=== PATIENT | male | born 1950 | race Caucasian/White ===

== ENCOUNTER → 2019-07-20 | Outpatient (CLI) | payer MEDICARE, SELFPAY | END | disposition home or self-care (01) | PROVIDERS: Visit Provider Podiatrist | DX: L03.115 Cellulitis of right lower limb (principal) | CPT/HCPCS: 87070; 87075; 87205 ==

== ENCOUNTER → 2020-11-23 13:03 | Outpatient (CLI) | payer MEDICARE, SELFPAY ==
--- NOTE | 2020-11-23 13:12 | CT_ITS ---
STUDY: LOW DOSE CT LUNG CANCER SCREENING REASON FOR EXAM: Male, 70 years old. COPD. The patient smoked 1.5 packs of cigarettes a day for 40 years. RADIATION DOSAGE (If Supplied By Facility): CTDIvol = ( 2.01 ) mGy, DLP = ( 77.01 ) mGycm TECHNIQUE: No contrast was administered. Low dose technique was utilized (average mAS-38 and kVp 120). 1.25 mm axial source images with a slice interval of 1.25-mm were reconstructed in lung windows. 2.5 mm axial source images with a slice interval of 2.5-mm were reconstructed in lung windows. 5.0 mm axial source images with a slice interval of 5.0-mm were reconstructed in soft tissue windows. Nodule measured using lung windows on PACS and/or independent workstation with automated measurement of minimum and maximum diameter. Nodule measurement reported as average diameter rounded to the nearest whole number. Growth is defined as an increase ins size of greater than 1.5 mm. COMPARISON: None. NODULES: There is a 1.8 cm x 0.9 cm ovoid nodular density in the lateral posterior aspect of the left upper lobe. This most likely presents a focal area of scarring although a neoplastic process cannot be excluded. There is also evidence of linear scarring in the anterior aspect of the left lung apex. Emphysema: Hyperinflation. Diffuse emphysematous changes with bullous formation in both upper and lower lobes more prominent in the upper lobes. Linear fibrotic strand is seen in the right lung apex. Aorta: Atherosclerotic calcific plaques of the aortic arch. Coronary arteries: Coronary artery calcification. Mediastinal nodes: Small benign appearing mediastinal lymph nodes. Other chest and abdominal findings: CT/Low Dose CT Lung Screening IMPRESSION: Lung-RADS category 4A - Screening at 3 months with LDCT or evaluation with PET/CT may be used. IMPORTANT NOTES FOR USE: ACR Lung-RADS Version 1.1 Assessment Categories Release Date: 2018 Category: Coded 0-4 bases on nodule(s) with highest degree of suspicion. Negative screen is defined as categories 1 and 2; a positive screen is defined as categories 3 and 4. Category 3 and 4A nodules that are unchanged on interval CT should be coded as category 2, and individuals returned to screening in 12 months. Category 4X: Category 3 or 4 nodules with additional imaging findings that increase the suspicion of lung cancer, such as spiculation, GGN that doubles in size in 1 year, enlarged lymph notes, etc. Category Modifiers: S (significant finding unrelated to lung cancer) Electronically Signed: Yuri Castaneda MD at 15:15 EDT , Service support ,
== END ==
PROVIDERS: Referring Provider Nurse Practitioner Adult Health; Visit Provider Nurse Practitioner Adult Health
DX: J44.9 Chronic obstructive pulmonary disease, unspecified (principal); Z87.891 Personal history of nicotine dependence; Z12.2 Encounter for screening for malignant neoplasm of respiratory organs
CPT/HCPCS: 71271

== ENCOUNTER → 2020-12-26 14:00 | Outpatient (CLI) | payer MEDICARE, SELFPAY ==
--- NOTE | 2020-12-26 15:00 | PET_ITS ---
EXAMINATION: FDG PET-CT INDICATIONS: A 70-year-old male with history of pulmonary nodularity. COMPARISON EXAMINATION: CT of the chest report dated 11/23/20 INDEX LESION SIZE SUV INTERPRETATION Left upper lung-left upper lobe, nodular 22.8-mm (frame 182) 1.9 Quantitative criteria for viable neoplasm are not fulfilled, sequential radiologic investigation recommended NON-INDEX LESION SIZE SUV INTERPRETATION Mediastinal structures, bilateral thoracic perihilum 2.6 (max) Quantitative criteria for viable neoplasm are not fulfilled Bilateral lung hernandez 0.8 (max) Quantitative criteria for viable neoplasm are not fulfilled, TECHNIQUE: Following the intravenous administration of 14.6 mCi of F-18 deoxyglucose via the right antecubital fossa, multiplanar image acquisitions of the neck, chest, abdomen and pelvis to level of mid thigh, obtained at one hour post radiopharmaceutical administration contemporaneously interpreted with the current CT of the neck, chest, abdomen and pelvis, to level of mid thigh, dated 12/26/[address] of the chest report dated 11/23/20 reveals: BLOOD GLUCOSE LEVEL:?? 104 mg/dl?HEIGHT:?68 inches?WEIGHT: 130 lbs. FINDINGS: 1. There is a focal increase in labeled GLUCOSE uptake defined in the left upper lateral lung-left upper lobe generating a calculated maximal standard uptake value of 1.9. The maximal axial diameter of the corresponding pleural-based density on review of CT of the chest dated 12/26/20 is 22.8-mm (AP). 2. Facilitated radiopharmaceutical concentration is observed in the carinal level and subcarinal mediastinum, aorticopulmonary window and bilateral thoracic perihilum. The calculated maximal standard uptake value is 2.6. Quantitative criteria for centrally located thoracic/mediastinal viable neoplasm are not fulfilled with single point technique. 3. Normal physiologic distribution of the radiopharmaceutical is apparent in the hepatic (2.9) and splenic parenchyma, both renal units, bladder and visualized intestinal tract. The visualized portion of the cerebral cortical-subcortical structures demonstrate symmetric and preserved glucose metabolism. Diffuse radiopharmaceutical concentration is noted in all four quadrants of the abdomen and pelvis. Subtle linear increased tracer uptake is observed in the bilateral upper lung hernandez rendering a calculated maximal standard uptake value of 0.8. Quantitative criteria for viable neoplasm are not fulfilled. Pertinent CT findings are as follows: CHEST: There is atherosclerotic calcification defined in the thoracic aorta without evidence of dilatation-aneurysm formation. Coronary arterial calcification is observed. Emphysematous changes are defined in the bilateral upper-mid lung zones. Right-left axillary soft tissue with fatty hilus is ametabolic. ABDOMEN AND PELVIS: There is atherosclerotic calcification defined in the abdominal aorta without evidence of dilatation-aneurysm formation. Pelvic arterial calcification is observed. Colonic diverticulosis is encountered without evidence of diverticulitis. Bilateral inguinal soft tissue densities with fatty hilus are ametabolic. Dystrophic calcification is manifest within the prostate gland without evidence of increased tracer uptake. SKELETAL: Degenerative changes are noted in the cervical, thoracic and lumbar spine without evidence of increased radiopharmaceutical concentration. PET/PET/CT Tumor Base -Thigh Init IMPRESSION: 1. NEGATIVE EXAMINATION. There is no definitive quantitative scintigraphic evidence of recurrent/viable neoplasm. 2. Increased tracer uptake visualized in the left upper lateral lung-left upper lobe does not fulfill quantitative criteria for malignant transformation. (Cuello et al, Annals of Internal Medicine, 138:724, 2003). 3. Metabolic and/or anatomic stability may be ensured in the left upper lateral lung-left upper lobe hemithorax pulmonary parenchymal abnormality with repeat FDG PET study and/or CT of the thorax in three months. (Xiu, Journal of Nuclear Medicine 45:88, P2004 [facility], Seminars in Thoracic and Cardiovascular Surgery 14:292, 2002). 4. Enhanced radiotracer activity observed in the mediastinal structures, bilateral thoracic perihilum do not fulfill quantitative criteria for viable metastatic disease. (Kriss et al, Journal of Clinical Oncology 16:2142, 1998). 5. Accentuated uptake visualized in the bilateral upper lung hernandez, linear in presentation, does not fulfill quantitative criteria for malignant transformation. Electronic Signature Garret Leigh D.O. Accurate Quantification of SUVs for this report are calculated using the exclusive [employer]. ([place]. Patent No. [id number]). Standardization and correction of the FDG SUV metric via [employer] technology allow for vendor non-specific objective quantitative examination comparison and optimization of the sensitivity and specificity of the FDG PET-CT examination. Electronically Signed: Garret Leigh DO at 23:30 EDT Tel , Service support ,
== END ==
PROVIDERS: Referring Provider Nurse Practitioner Adult Health; Visit Provider Nurse Practitioner Adult Health
DX: R91.8 Other nonspecific abnormal finding of lung field (principal)
CPT/HCPCS: 78815; A9552